=== PATIENT | male | born 1960 | race Caucasian/White ===

== ENCOUNTER 2017-11-29 10:42 | Emergency (ER) | payer OTHER ==
[~2017-11-29] VITALS: Ht 172.7 cm; Wt 88.5 kg
[~2017-11-29 10:42] MED LIST: (None)20 M1 PO; ALBU90OI INH; Cheratussin AC118 ML PO; Crutch1 EACH MISC; HYDACE5 PO; HYDGUAL120 PO; IBUP600 PO; Keflex500 MG PO; NAPR500 PO; Naprosyn500 MG PO; Norco 5-325 Ta1 EACH PO; OXYACE5T PO; PROM25 PO; RXPROM25 PO; SULTRIDS PO; TRAM50 PO; Ultram50 MG PO; Zithromax250 MG PO
[2017-11-29] MEDS ORDERED: Norco 5-325 Ta1 EACH PO (11:57)
[2018-10-20] MEDS ORDERED: MELO7.5 PO (08:33)
[2018-10-20] MEDS ORDERED: FOLI1 PO (08:33)
[2018-10-20] MEDS ORDERED: Norco 5-325 Ta1 EACH PO (10:07)
[2018-10-20] MEDS ORDERED: Bactrim Ds Tab1 EACH PO (11:12)
== END 2017-11-29 12:08 | disposition home or self-care (01) ==
LOC: ER 10:42
DX: S16.1XXA Strain of muscle, fascia and tendon at neck level, initial encounter (principal); S40.011A Contusion of right shoulder, initial encounter; F17.200 Nicotine dependence, unspecified, uncomplicated; Z88.5 Allergy status to narcotic agent; Z88.0 Allergy status to penicillin; Z79.2 Long term (current) use of antibiotics; W18.30XA Fall on same level, unspecified, initial encounter
CPT/HCPCS: 72040; 73030; 96372; 99283; J1885

== ENCOUNTER 2018-02-27 09:28 | Day surgery (SDC) | payer OTHER | END 2018-02-27 22:47 | disposition home or self-care (01) | LOC: US 09:28 | PROVIDERS: Radiology Diagnostic Radiology | PROC: 0FB03ZX Excision of Liver, Percutaneous Approach, Diagnostic (ICD-10-PCS; principal; 2018-02-27 11:00) | DX: B18.2 Chronic viral hepatitis C (principal); K74.0 Hepatic fibrosis | CPT/HCPCS: 47000; 76942; 88307; 88313 ==

== ENCOUNTER 2019-07-01 09:13 | Day surgery (SDC) | payer OTHER ==
[~2019-07-01] VITALS: Ht 172.7 cm; Wt 74.5 kg
[~2019-07-01 09:13] MED LIST changes: +Bactrim Ds Tab1 EACH PO; +FOLI1 PO; +MELO7.5 PO
[2019-07-01] MEDS ORDERED: Singulair5 MG (09:50)
[2019-07-01] MEDS ORDERED: Flonase 0.05% N16 GM (09:50)
[2019-07-01] MEDS ORDERED: PROAIR RESPICL90 MCG (09:51)
== END 2019-07-01 11:22 | disposition home or self-care (01) ==
LOC: ORSCSDS 09:13
PROVIDERS: Internal Medicine Gastroenterology
PROC: 0DBM8ZX Excision of Descending Colon, Via Natural or Artificial Opening Endoscopic, Diagnostic (ICD-10-PCS; principal; 2019-07-01 10:45)
PROC: 0DBN8ZX Excision of Sigmoid Colon, Via Natural or Artificial Opening Endoscopic, Diagnostic (ICD-10-PCS; principal; 2019-07-01 10:45)
PROC: 0DB98ZX Excision of Duodenum, Via Natural or Artificial Opening Endoscopic, Diagnostic (ICD-10-PCS; principal; 2019-07-01 10:45)
DX: D50.9 Iron deficiency anemia, unspecified (principal); D12.5 Benign neoplasm of sigmoid colon; D12.4 Benign neoplasm of descending colon; K31.7 Polyp of stomach and duodenum; K29.80 Duodenitis without bleeding; K64.8 Other hemorrhoids; B19.20 Unspecified viral hepatitis C without hepatic coma; F17.210 Nicotine dependence, cigarettes, uncomplicated; Z79.899 Other long term (current) drug therapy
CPT/HCPCS: 88305; J2704; J7120

== ENCOUNTER 2019-08-25 10:16 | Emergency (ER) | payer OTHER ==
[~2019-08-25] VITALS: Ht 172.7 cm; Wt 72.6 kg
[~2019-08-25 10:16] MED LIST changes: +Flonase 0.05% N16 GM; +PROAIR RESPICL90 MCG; +Singulair5 MG
[2019-08-25] MEDS ORDERED: SPIRIVA RESPIMAT4 GM IH (11:16)
[2019-08-25] MEDS ORDERED: NAPR550 PO (11:48)
[2019-08-25] MEDS ORDERED: Ultram50 MG PO (11:48)
== END 2019-08-25 11:54 | disposition home or self-care (01) ==
LOC: ER 10:16
DX: M70.61 Trochanteric bursitis, right hip (principal); Z88.5 Allergy status to narcotic agent; Z88.0 Allergy status to penicillin; Z79.899 Other long term (current) drug therapy; F17.200 Nicotine dependence, unspecified, uncomplicated
CPT/HCPCS: 20610; 73502; 96372-59; 99283-25; A9270-GY; J1885; J3301

== ENCOUNTER → 2021-08-31 | Outpatient (CLI) | payer OTHER ==
[~2021-08-31] MED LIST changes: +NAPR550 PO; +SPIRIVA RESPIMAT4 GM IH; +Voltaren100 GM TOP
[2021-08-31 15:35] LABS: BASOPHILS ABSOLUTE AUTO 0.04 K/mm3 (0.00-0.23); BASOPHILS PERCENT AUTO 1 % (0-2); EOSINOPHILS PERCENT AUTO 3 % (0-6); Hematocrit 28.3 % (37.0-53.0); Hemoglobin 9.7 g/dL (13.5-17.5); Mean Corpuscular HGB 42.4 pg (26.0-34.0); Mean Corpuscular HGB Conc 34.3 g/dL (31.5-36.5); Mean Corpuscular Volume 124 fL (80-100); Mean Platelet Volume 10.7 fL (9.1-12.4); NRBC ABSOLUTE 0.02 K/mm3 (0.00-0.02); NRBC Auto 0.6 /100 WBC (0.0-0.2); Platelet Count 218 K/mm3 (150-400); RDW Coefficient Variation 15.9 % (11.7-14.2); Red Blood Cell Count 2.29 M/mm3 (4.30-5.90)
[2021-08-31 15:37] LABS: IMMATURE GRAN ABSOLUTE AUTO 0.01 K/mm3 (0.00-0.10); IMMATURE GRAN PERCENT AUTO 0 % (0-1); LYMPHOCYTES ABSOLUTE AUTO 1.05 K/mm3 (0.84-5.20); LYMPHOCYTES PERCENT AUTO 30 % (21-46); MONOCYTES ABSOLUTE AUTO 0.31 K/mm3 (0.16-1.47); MONOCYTES PERCENT AUTO 9 % (4-13); NEUTROPHILS ABSOLUTE AUTO 1.99 K/mm3 (1.96-9.15); NEUTROPHILS PERCENT AUTO 57 % (41-73)
== END | disposition home or self-care (01) ==
LOC: LAB 12:31 → LAB SHORT 12:31
PROVIDERS: Internal Medicine Hematology & Oncology
DX: D75.89 Other specified diseases of blood and blood-forming organs (principal)
CPT/HCPCS: 36415; 85025

== ENCOUNTER 2021-11-24 06:23 | Day surgery (SDC) | payer OTHER ==
[2021-11-24] MEDS ORDERED: CYCL10 PO (06:41)
[2021-11-24] MEDS ORDERED: ALBU90OI INH (06:41)
[2021-11-24] MEDS ORDERED: LIDO5TO TOP (06:42)
[2021-11-24] MEDS ORDERED: Flonase 0.05% N16 GM (06:42)
[2021-11-24] MEDS ORDERED: XARELTO20 MG PO (06:43)
--- NOTE | 2021-11-24 08:06 | NUR ---
PT VERBALIZED UNDERSTANDING OF WRITTEN AND VERBAL D/C INST. IV REMOVED. SR 70BPM ON D/C.
== END 2021-11-24 23:44 | disposition home or self-care (01) ==
LOC: MHTC 06:23
DX: I48.91 Unspecified atrial fibrillation (principal)
CPT/HCPCS: 92960; 93005; 93010; J7030

== ENCOUNTER 2022-12-13 03:07 | Day surgery (SDC) | payer OTHER ==
[~2022-12-13 03:07] MED LIST changes: +CYCL10 PO; +LIDO5TO TOP; +XARELTO20 MG PO
[2022-12-13] MEDS ORDERED: LIDO700A20 TOP (13:36)
[2022-12-13] MEDS ORDERED: DILT120 PO (13:37)
== END 2022-12-13 15:24 | disposition home or self-care (01) ==
LOC: ATC 03:07
DX: D46.1 Refractory anemia with ring sideroblasts (principal); Z87.891 Personal history of nicotine dependence
CPT/HCPCS: 36415; 36430; 86850; 86900; 86901; 86920; J7040; P9016

== ENCOUNTER 2023-06-07 02:58 | Day surgery (SDC) | payer OTHER ==
[2023-06-07] VITALS (7 sets, daily range): BP systolic 114–152; BP diastolic 58–77
[~2023-06-07 02:58] MED LIST changes: +DILT120 PO; +LIDO700A20 TOP
== END 2023-06-07 17:48 | disposition home or self-care (01) ==
LOC: ATC 02:58
DX: D46.1 Refractory anemia with ring sideroblasts (principal)
CPT/HCPCS: 36415; 36430; 86850; 86900; 86901; 86923; J7050; P9016

== ENCOUNTER 2023-06-23 12:10 | Emergency (ER) | payer OTHER ==
[~2023-06-23] VITALS: Ht 172.7 cm; Wt 79.4 kg
[2023-06-23 12:38] VITALS: BP 147/78
[2023-06-23] MEDS ORDERED: Percocet 5-3251 EACH PO (15:04)
== END 2023-06-23 15:16 | disposition home or self-care (01) ==
LOC: ER 12:10
DX: S22.32XA Fracture of one rib, left side, initial encounter for closed fracture (principal); J90 Pleural effusion, not elsewhere classified; J45.909 Unspecified asthma, uncomplicated; I48.91 Unspecified atrial fibrillation; F17.210 Nicotine dependence, cigarettes, uncomplicated; Z88.5 Allergy status to narcotic agent; Z88.0 Allergy status to penicillin; Z79.01 Long term (current) use of anticoagulants; Z79.899 Other long term (current) drug therapy; W18.30XA Fall on same level, unspecified, initial encounter
CPT/HCPCS: 71101

== ENCOUNTER 2023-08-13 00:34 | Day surgery (SDC) | payer OTHER ==
[2023-08-13] VITALS (7 sets, daily range): BP systolic 119–144; BP diastolic 62–77
[~2023-08-13 00:34] MED LIST changes: +Percocet 5-3251 EACH PO
== END 2023-08-13 18:00 | disposition home or self-care (01) ==
LOC: ATC 00:34 → EDSTATUS 13:30 → ATC 18:00
DX: D46.1 Refractory anemia with ring sideroblasts (principal); E87.79 Other fluid overload; Z88.0 Allergy status to penicillin; Z88.5 Allergy status to narcotic agent; Z79.01 Long term (current) use of anticoagulants; Z87.891 Personal history of nicotine dependence; Z79.899 Other long term (current) drug therapy
CPT/HCPCS: 36415; 36430; 86850; 86900; 86901; 86923; J7050; P9016

== ENCOUNTER 2023-09-16 11:32 | Emergency (ER) | payer OTHER ==
[~2023-09-16] VITALS: Ht 172.7 cm; Wt 75.8 kg
[2023-09-16 12:12] VITALS: BP 158/65
[2023-09-16] MEDS ORDERED: CEPH500 PO (12:46)
== END 2023-09-16 13:07 | disposition home or self-care (01) ==
LOC: ER 11:32
DX: L02.415 Cutaneous abscess of right lower limb (principal); L03.115 Cellulitis of right lower limb; F17.200 Nicotine dependence, unspecified, uncomplicated; Z88.5 Allergy status to narcotic agent; Z88.0 Allergy status to penicillin; Z79.899 Other long term (current) drug therapy; Z79.01 Long term (current) use of anticoagulants
CPT/HCPCS: 99282

== ENCOUNTER 2023-10-08 14:25 | Day surgery (SDC) | payer OTHER ==
[~2023-10-08 14:25] MED LIST changes: +CEPH500 PO
[2023-10-08 14:45] VITALS: BP 120/59
[2023-10-08 15:04] VITALS: BP 113/73
[2023-10-08 16:22] VITALS: BP 110/75
[2023-10-08 16:42] VITALS: BP 121/80
[2023-10-08 17:55] VITALS: BP 109/71
== END 2023-10-08 18:00 | disposition home or self-care (01) ==
LOC: ATC 14:25
DX: D46.1 Refractory anemia with ring sideroblasts (principal); Z87.891 Personal history of nicotine dependence
CPT/HCPCS: 36430; 86850; 86900; 86901; 86923; J7050; P9016

== ENCOUNTER 2023-12-03 02:28 | Day surgery (SDC) | payer OTHER ==
[2023-12-03 13:55] VITALS: BP 125/80
[2023-12-03 14:11] VITALS: BP 111/63
[2023-12-03 15:10] VITALS: BP 113/65
[2023-12-03 15:41] VITALS: BP 122/67
[2023-12-03 15:57] VITALS: BP 121/79
[2023-12-03 16:59] VITALS: BP 128/72
--- NOTE | 2023-12-03 17:19 | NUR ---
END TIME: 9340
== END 2023-12-03 17:10 ==
LOC: ATC 02:28
DX: D46.1 Refractory anemia with ring sideroblasts (principal); Z87.891 Personal history of nicotine dependence
CPT/HCPCS: 36415; 36430; 86850; 86900; 86901; 86923; J7050; P9016

== ENCOUNTER 2023-12-10 11:08 | Emergency (ER) | payer OTHER ==
[~2023-12-10] VITALS: Ht 172.7 cm; Wt 79.4 kg
[2023-12-10 11:50] LABS: BASOPHILS ABSOLUTE AUTO 0.02 K/mm3 (0.00-0.23); BASOPHILS PERCENT AUTO 1 % (0-2); EOSINOPHILS ABSOLUTE AUTO 0.17 K/mm3 (0.00-0.68); EOSINOPHILS PERCENT AUTO 5 % (0-6); Hematocrit 20.6 % (37.0-53.0); Hemoglobin 6.7 g/dL (13.5-17.5); IMMATURE GRAN ABSOLUTE AUTO 0.04 K/mm3 (0.00-0.10); IMMATURE GRAN PERCENT AUTO 1 % (0-1); LYMPHOCYTES ABSOLUTE AUTO 0.68 K/mm3 (0.84-5.20); LYMPHOCYTES PERCENT AUTO 19 % (21-46); MONOCYTES PERCENT AUTO 11 % (4-13); Mean Corpuscular HGB 37.6 pg (26.0-34.0); Mean Corpuscular HGB Conc 32.5 g/dL (31.5-36.5); Mean Corpuscular Volume 116 fL (80-100); Mean Platelet Volume 11.1 fL (9.1-12.4); NEUTROPHILS ABSOLUTE AUTO 2.23 K/mm3 (1.96-9.15); NEUTROPHILS PERCENT AUTO 63 % (41-73); NRBC ABSOLUTE 0.12 K/mm3 (0.00-0.02); NRBC Auto 3.4 /100 WBC (0.0-0.2); Platelet Count 278 K/mm3 (150-400); RDW Coefficient Variation 29.7 % (11.7-14.2); RDW Standard Deviation 117.3 fL (35.1-46.3); Red Blood Cell Count 1.78 M/mm3 (4.30-5.90); White Blood Cell Count 3.54 K/mm3 (4.00-11.30)
[2023-12-10 12:04] LABS: International Normalized Ratio 1.3; Prothrombin Time Results 13.4 Sec (9.7-11.5)
[2023-12-10 12:09] LABS: Albumin/Globulin Ratio 0.7 (0.8-1.8); Bilirubin, Total 1.5 mg/dL (0.1-1.0); Bun/Creatinine Ratio 13.2 (12.0-20.0); Calcium, Blood 8.4 mg/dL (8.5-10.1); Creatinine, Blood 0.53 mg/dL (0.60-1.20); Globulin, Blood 4.1 g/dL (2.2-4.0); Potassium, Blood 3.5 mmol/L (3.5-5.5); Total Protein, Blood 7.1 g/dL (6.4-8.2)
[2023-12-10 15:30] VITALS: BP 122/83
== END 2023-12-10 15:56 | disposition home or self-care (01) ==
LOC: ER 11:08
PROVIDERS: Physician Assistant
DX: D64.9 Anemia, unspecified (principal); F17.210 Nicotine dependence, cigarettes, uncomplicated; Z88.0 Allergy status to penicillin; Z88.5 Allergy status to narcotic agent; Z79.899 Other long term (current) drug therapy; Z79.01 Long term (current) use of anticoagulants
CPT/HCPCS: 36430; 80053; 85025; 85610; 86850; 86900; 86901; 86923; 93005; 93010; 99284-25; J7030; P9016

== ENCOUNTER 2024-05-15 02:17 | Day surgery (SDC) | payer OTHER ==
[2024-05-15] VITALS (7 sets, daily range): BP systolic 103–134; BP diastolic 51–78
[~2024-05-15 02:17] MED LIST changes: +FUROSEMIDE40 MG PO; +KLOR-CON 1010 ME9 PO; +NEURONTIN300 MG PO; +Nicoderm Cq1 EACH TOP; +PANTOPRAZOLE SO40 M2 PO; +SPIRIVA RESPIMAT4 G3 INH; +Ventolin5 MG/1 ML INH
[2024-05-15] MEDS ORDERED: NS 250 ML IV SCH (11:40)
== END 2024-05-15 17:12 | disposition home or self-care (01) ==
LOC: ATC 02:17
DX: D46.1 Refractory anemia with ring sideroblasts (principal); Z88.0 Allergy status to penicillin; Z88.5 Allergy status to narcotic agent
CPT/HCPCS: 36415; 36430; 86850; 86900; 86901; 86923; J7050; P9016

== ENCOUNTER → 2024-06-23 | Outpatient (CLI) | payer OTHER ==
[2024-06-23 18:24] LABS: Percent Saturation 97.6 % (20.0-50.0)
== END ==
LOC: LAB 15:31 → LAB SHORT 15:31
PROVIDERS: Internal Medicine Hematology & Oncology
DX: D46.1 Refractory anemia with ring sideroblasts (principal)
CPT/HCPCS: 82728; 83540; 83550

== ENCOUNTER 2024-08-21 03:02 | Day surgery (SDC) | payer OTHER ==
[2024-08-19 13:57] LABS: Mean Corpuscular HGB 34.4 pg (26.0-34.0); Mean Corpuscular HGB Conc 32.9 g/dL (31.5-36.5); Mean Corpuscular Volume 105 fL (80-100); Mean Platelet Volume 10.4 fL (9.1-12.4); NRBC ABSOLUTE 0.03 K/mm3 (0.00-0.02); NRBC Auto 1.6 /100 WBC (0.0-0.2); Platelet Count 181 K/mm3 (150-400); RDW Coefficient Variation 30.5 % (11.7-14.2); RDW Standard Deviation 109.5 fL (35.1-46.3); Red Blood Cell Count 1.54 M/mm3 (4.30-5.90); White Blood Cell Count 1.83 K/mm3 (4.00-11.30)
[2024-08-19 14:29] LABS: Hematocrit 16.1 % (37.0-53.0); Hemoglobin 5.3 g/dL (13.5-17.5)
[2024-08-19 15:01] LABS: BAND PERCENT MAN 4 % (0-8); BASOPHILS PERCENT MAN 0 % (0-2); EOSINOPHILS ABSOLUTE MAN 0.03 K/mm3 (0.00-0.68); EOSINOPHILS PERCENT MAN 2 % (0-6); LYMPHOCYTES ABSOLUTE MAN 0.25 K/mm3 (0.84-5.20); LYMPHOCYTES PERCENT MAN 14 % (21-46); MONOCYTES ABSOLUTE MAN 0.07 K/mm3 (0.16-1.47); MONOCYTES PERCENT MAN 4 % (4-13); NEUTROPHILS ABSOLUTE MAN 1.46 K/mm3 (1.96-9.15); SEG NEUTROPHILS PERCENT MAN 76 % (41-73); TOTAL CELLS COUNTED 50
[2024-08-21] MEDS ORDERED: NS 250 ML IV SCH (07:05)
[2024-08-21 13:32] VITALS: BP 106/50
[2024-08-21 13:51] VITALS: BP 101/62
[2024-08-21 15:08] VITALS: BP 114/66
[2024-08-21 15:30] VITALS: BP 108/68
[2024-08-21 16:31] VITALS: BP 110/65
[2024-08-21 17:01] VITALS: BP 110/65
== END 2024-08-21 17:03 | disposition home or self-care (01) ==
LOC: ATC 03:02 → EDSTATUS 13:30 → ATC 13:30
PROVIDERS: Internal Medicine Hematology & Oncology
DX: D46.1 Refractory anemia with ring sideroblasts (principal)
CPT/HCPCS: 36415; 36430; 85025; 86850; 86900; 86901; 86923; J7050; P9016

== ENCOUNTER → 2024-08-26 | Outpatient (CLI) | payer OTHER ==
[2024-08-26 19:01] LABS: BASOPHILS ABSOLUTE AUTO 0.03 K/mm3 (0.00-0.23); BASOPHILS PERCENT AUTO 1 % (0-2); EOSINOPHILS ABSOLUTE AUTO 0.05 K/mm3 (0.00-0.68); EOSINOPHILS PERCENT AUTO 2 % (0-6); Hematocrit 18.5 % (37.0-53.0); Hemoglobin 6.2 g/dL (13.5-17.5); IMMATURE GRAN ABSOLUTE AUTO 0.01 K/mm3 (0.00-0.10); IMMATURE GRAN PERCENT AUTO 1 % (0-1); LYMPHOCYTES ABSOLUTE AUTO 0.34 K/mm3 (0.84-5.20); LYMPHOCYTES PERCENT AUTO 16 % (21-46); MONOCYTES ABSOLUTE AUTO 0.21 K/mm3 (0.16-1.47); MONOCYTES PERCENT AUTO 10 % (4-13); Mean Corpuscular HGB 34.8 pg (26.0-34.0); Mean Corpuscular HGB Conc 33.5 g/dL (31.5-36.5); Mean Corpuscular Volume 104 fL (80-100); Mean Platelet Volume 10.6 fL (9.1-12.4); NEUTROPHILS ABSOLUTE AUTO 1.44 K/mm3 (1.96-9.15); NEUTROPHILS PERCENT AUTO 69 % (41-73); Platelet Count 185 K/mm3 (150-400); RDW Coefficient Variation 27.3 % (11.7-14.2); RDW Standard Deviation 99.8 fL (35.1-46.3); Red Blood Cell Count 1.78 M/mm3 (4.30-5.90); White Blood Cell Count 2.08 K/mm3 (4.00-11.30)
[2024-08-26 19:38] LABS: Percent Saturation 102.1 % (20.0-50.0)
== END ==
LOC: LAB 12:30 → LAB SHORT 12:30
PROVIDERS: Internal Medicine Hematology & Oncology
DX: D75.89 Other specified diseases of blood and blood-forming organs (principal); D50.9 Iron deficiency anemia, unspecified
CPT/HCPCS: 82728; 83540; 83550; 85025

== ENCOUNTER 2024-09-04 00:04 | Day surgery (SDC) | payer OTHER ==
[2024-09-04] MEDS ORDERED: NS 250 ML IV SCH (07:10)
[2024-09-04 13:16] VITALS: BP 108/53
[2024-09-04 13:34] VITALS: BP 108/55
[2024-09-04 14:36] VITALS: BP 115/60
[2024-09-04 14:57] VITALS: BP 115/60
[2024-09-04 15:17] VITALS: BP 107/80
[2024-09-04 16:48] VITALS: BP 106/72
== END 2024-09-04 16:50 | disposition home or self-care (01) ==
LOC: ATC 00:04
DX: D46.1 Refractory anemia with ring sideroblasts (principal); D50.9 Iron deficiency anemia, unspecified; D75.89 Other specified diseases of blood and blood-forming organs; Z79.01 Long term (current) use of anticoagulants; Z79.899 Other long term (current) drug therapy; Z87.891 Personal history of nicotine dependence; Z88.0 Allergy status to penicillin; Z88.5 Allergy status to narcotic agent
CPT/HCPCS: 36415; 82728; 83540; 83550; 85025; 86850; 86900; 86901; 86923; J7050; P9016

== ENCOUNTER → 2024-09-16 | Outpatient (CLI) | payer OTHER ==
[2024-09-16 14:23] LABS: BASOPHILS ABSOLUTE AUTO 0.03 K/mm3 (0.00-0.23); BASOPHILS PERCENT AUTO 2 % (0-2); EOSINOPHILS ABSOLUTE AUTO 0.09 K/mm3 (0.00-0.68); EOSINOPHILS PERCENT AUTO 5 % (0-6); Hemoglobin 6.4 g/dL (13.5-17.5); IMMATURE GRAN ABSOLUTE AUTO 0.01 K/mm3 (0.00-0.10); IMMATURE GRAN PERCENT AUTO 1 % (0-1); LYMPHOCYTES ABSOLUTE AUTO 0.45 K/mm3 (0.84-5.20); LYMPHOCYTES PERCENT AUTO 23 % (21-46); MONOCYTES ABSOLUTE AUTO 0.22 K/mm3 (0.16-1.47); MONOCYTES PERCENT AUTO 11 % (4-13); Mean Corpuscular HGB 34.8 pg (26.0-34.0); Mean Corpuscular HGB Conc 33.7 g/dL (31.5-36.5); Mean Corpuscular Volume 103 fL (80-100); Mean Platelet Volume 10.5 fL (9.1-12.4); NEUTROPHILS PERCENT AUTO 60 % (41-73); NRBC ABSOLUTE 0.03 K/mm3 (0.00-0.02); NRBC Auto 1.5 /100 WBC (0.0-0.2); Platelet Count 187 K/mm3 (150-400); RDW Coefficient Variation 26.1 % (11.7-14.2); RDW Standard Deviation 93.1 fL (35.1-46.3); Red Blood Cell Count 1.84 M/mm3 (4.30-5.90)
== END ==
LOC: LAB 11:40 → LAB SHORT 11:40
PROVIDERS: Internal Medicine Hematology & Oncology
DX: D46.1 Refractory anemia with ring sideroblasts (principal)
CPT/HCPCS: 85025

== ENCOUNTER 2024-09-21 03:04 | Day surgery (SDC) | payer OTHER ==
[2024-09-21 13:21] VITALS: BP 111/59
[2024-09-21] MEDS ORDERED: NS 250 ML IV SCH (13:30)
[2024-09-21 13:41] VITALS: BP 108/62
[2024-09-21 14:44] VITALS: BP 125/69
[2024-09-21 15:16] VITALS: BP 114/70
[2024-09-21 15:40] VITALS: BP 114/68
[2024-09-21 16:41] VITALS: BP 120/68
== END 2024-09-21 23:00 | disposition home or self-care (01) ==
LOC: ATC 03:04
DX: D46.1 Refractory anemia with ring sideroblasts (principal); Z87.891 Personal history of nicotine dependence; Z88.0 Allergy status to penicillin; Z88.5 Allergy status to narcotic agent
CPT/HCPCS: 36415; 86850; 86900; 86901; 86923; J7050; P9016

== ENCOUNTER 2024-10-23 02:28 | Day surgery (SDC) | payer OTHER ==
[2024-10-23] VITALS (7 sets, daily range): BP systolic 97–117; BP diastolic 58–78
[2024-10-23] MEDS ORDERED: NS 250 ML IV SCH (07:05)
[2024-10-23] MEDS ORDERED: ANTIBIOTIC (14:16)
[2024-10-23] MEDS ORDERED: GUAI600T33 PO (14:16)
[2024-10-23] MEDS ORDERED: SOAANZ40 M1 PO (14:16)
== END 2024-10-23 18:02 | disposition home or self-care (01) ==
LOC: ATC 02:28
DX: D46.1 Refractory anemia with ring sideroblasts (principal); Z87.891 Personal history of nicotine dependence; Z79.899 Other long term (current) drug therapy; Z88.0 Allergy status to penicillin; Z88.5 Allergy status to narcotic agent
CPT/HCPCS: 36415; 36430; 86850; 86900; 86901; 86923; J7050; P9016

== ENCOUNTER → 2024-10-28 | Outpatient (CLI) | payer OTHER ==
[~2024-10-28] MED LIST changes: +ANTIBIOTIC; +GUAI600T33 PO; +SOAANZ40 M1 PO
[2024-10-28 15:47] LABS: BASOPHILS ABSOLUTE AUTO 0.02 K/mm3 (0.00-0.23); BASOPHILS PERCENT AUTO 1 % (0-2); EOSINOPHILS ABSOLUTE AUTO 0.07 K/mm3 (0.00-0.68); EOSINOPHILS PERCENT AUTO 3 % (0-6); Hematocrit 23.8 % (37.0-53.0); Hemoglobin 7.8 g/dL (13.5-17.5); IMMATURE GRAN ABSOLUTE AUTO 0.01 K/mm3 (0.00-0.10); IMMATURE GRAN PERCENT AUTO 1 % (0-1); LYMPHOCYTES ABSOLUTE AUTO 0.47 K/mm3 (0.84-5.20); LYMPHOCYTES PERCENT AUTO 22 % (21-46); MONOCYTES ABSOLUTE AUTO 0.24 K/mm3 (0.16-1.47); MONOCYTES PERCENT AUTO 11 % (4-13); Mean Corpuscular HGB 34.7 pg (26.0-34.0); Mean Corpuscular HGB Conc 32.8 g/dL (31.5-36.5); Mean Corpuscular Volume 106 fL (80-100); Mean Platelet Volume 10.9 fL (9.1-12.4); NEUTROPHILS ABSOLUTE AUTO 1.37 K/mm3 (1.96-9.15); NEUTROPHILS PERCENT AUTO 63 % (41-73); NRBC ABSOLUTE 0.02 K/mm3 (0.00-0.02); NRBC Auto 0.9 /100 WBC (0.0-0.2); Platelet Count 150 K/mm3 (150-400); RDW Coefficient Variation 27.9 % (11.7-14.2); RDW Standard Deviation 98.7 fL (35.1-46.3); Red Blood Cell Count 2.25 M/mm3 (4.30-5.90); White Blood Cell Count 2.18 K/mm3 (4.00-11.30)
== END ==
LOC: LAB SHORT 12:00 → LAB 12:00
PROVIDERS: Internal Medicine Hematology & Oncology
DX: D50.9 Iron deficiency anemia, unspecified (principal)
CPT/HCPCS: 85025

== ENCOUNTER → 2024-12-09 | Outpatient (CLI) | payer OTHER ==
[2024-12-09 14:31] LABS: Hematocrit 18.8 % (37.0-53.0); Hemoglobin 6.4 g/dL (13.5-17.5); Mean Corpuscular HGB 35.8 pg (26.0-34.0); Mean Corpuscular Volume 105 fL (80-100); Mean Platelet Volume 11.1 fL (9.1-12.4); NRBC ABSOLUTE 0.03 K/mm3 (0.00-0.02); NRBC Auto 1.7 /100 WBC (0.0-0.2); Platelet Count 176 K/mm3 (150-400); RDW Coefficient Variation 28.4 % (11.7-14.2); RDW Standard Deviation 101.8 fL (35.1-46.3); Red Blood Cell Count 1.79 M/mm3 (4.30-5.90); White Blood Cell Count 1.77 K/mm3 (4.00-11.30)
[2024-12-09 15:19] LABS: BAND PERCENT MAN 4 % (0-8); BASOPHILS ABSOLUTE MAN 0.07 K/mm3 (0.00-0.23); BASOPHILS PERCENT MAN 4 % (0-2); EOSINOPHILS PERCENT MAN 6 % (0-6); LYMPHOCYTES ABSOLUTE MAN 0.69 K/mm3 (0.84-5.20); LYMPHOCYTES PERCENT MAN 39 % (21-46); MONOCYTES ABSOLUTE MAN 0.17 K/mm3 (0.16-1.47); MONOCYTES PERCENT MAN 10 % (4-13); NEUTROPHILS ABSOLUTE MAN 0.72 K/mm3 (1.96-9.15); SEG NEUTROPHILS PERCENT MAN 37 % (41-73); TOTAL CELLS COUNTED 100
== END | disposition home or self-care (01) ==
LOC: LAB 13:23 → LAB SHORT 13:23
PROVIDERS: Internal Medicine Hematology & Oncology
DX: D46.1 Refractory anemia with ring sideroblasts (principal)
CPT/HCPCS: 85025

== ENCOUNTER → 2024-12-24 | Outpatient (CLI) | payer OTHER ==
[2024-12-24 22:43] LABS: Alanine Aminotransfer (ALT/SGP 78 U/L (12-78); Albumin, Blood 3.8 g/dL (3.4-5.0); Albumin/Globulin Ratio 0.9 (0.8-1.8); Alk Phos 88 U/L (50-136); Anion Gap 8 mmol/L (3-11); Aspartate Aminotrans (AST/SGOT 64 U/L (12-37); Bilirubin, Total 1.4 mg/dL (0.1-1.0); Blood Urea Nitrogen 20 mg/dL (8-24); Bun/Creatinine Ratio 33.9 (12.0-20.0); CHOL/HDL RATIO 1.8; CO2, Blood 28 mmol/L (21-32); Calcium, Blood 8.7 mg/dL (8.5-10.1); Chloride, Blood 103 mmol/L (98-108); Cholesterol 90 mg/dL (50-200); Creatinine, Blood 0.59 mg/dL (0.60-1.20); Globulin, Blood 4.4 g/dL (2.2-4.0); Glomerular Filtration Rate 109 (60-); Glucose, Blood 113 mg/dL (70-99); Glutamyl Transpeptidase, GGT 76 U/L (15-85); HDL Cholesterol 50 mg/dL (>39); LDL/HDL RATIO 0.7; Low Density Lipoprotein Chol 33 mg/dL (0-110); Prostate Specific Antigen 0.079 ng/mL (0.000-4.000); Sodium, Blood 135 mmol/L (136-145); Total Protein, Blood 8.2 g/dL (6.4-8.2); Triglycerides 36 mg/dL (30-160); Very Low Density Lipoprot Chol 7 mg/dL (6-32)
[2024-12-27 17:08] LABS: HIV 1,2 COMBO ANTIGEN/ANTIBODY Negative (Negative)
== END ==
LOC: LAB 13:55 → LAB SHORT 13:55
PROVIDERS: Family Medicine
DX: F10.10 Alcohol abuse, uncomplicated (principal); I50.30 Unspecified diastolic (congestive) heart failure; R74.01 Elevation of levels of liver transaminase levels; Z11.4 Encounter for screening for human immunodeficiency virus [HIV]; Z12.5 Encounter for screening for malignant neoplasm of prostate
CPT/HCPCS: 80053; 80061; 82607; 82746; 82977; 87389; G0103

== ENCOUNTER 2025-01-07 00:44 | Day surgery (SDC) | payer OTHER ==
[2025-01-05 13:35] LABS: BASOPHILS ABSOLUTE AUTO 0.03 K/mm3 (0.00-0.23); BASOPHILS PERCENT AUTO 2 % (0-2); EOSINOPHILS ABSOLUTE AUTO 0.11 K/mm3 (0.00-0.68); EOSINOPHILS PERCENT AUTO 6 % (0-6); Hematocrit 19.2 % (37.0-53.0); Hemoglobin 6.4 g/dL (13.5-17.5); IMMATURE GRAN ABSOLUTE AUTO 0.01 K/mm3 (0.00-0.10); IMMATURE GRAN PERCENT AUTO 1 % (0-1); LYMPHOCYTES PERCENT AUTO 25 % (21-46); MONOCYTES ABSOLUTE AUTO 0.29 K/mm3 (0.16-1.47); MONOCYTES PERCENT AUTO 15 % (4-13); Mean Corpuscular HGB 37.4 pg (26.0-34.0); Mean Corpuscular HGB Conc 33.3 g/dL (31.5-36.5); Mean Corpuscular Volume 112 fL (80-100); Mean Platelet Volume 11.1 fL (9.1-12.4); NEUTROPHILS ABSOLUTE AUTO 1.06 K/mm3 (1.96-9.15); NEUTROPHILS PERCENT AUTO 53 % (41-73); NRBC ABSOLUTE 0.03 K/mm3 (0.00-0.02); NRBC Auto 1.5 /100 WBC (0.0-0.2); Platelet Count 182 K/mm3 (150-400); RDW Coefficient Variation 30.5 % (11.7-14.2); Red Blood Cell Count 1.71 M/mm3 (4.30-5.90)
[2025-01-07] VITALS (7 sets, daily range): BP systolic 109–124; BP diastolic 51–77
[2025-01-07] MEDS ORDERED: NS 250 ML IV SCH (07:05)
== END 2025-01-07 17:22 | disposition home or self-care (01) ==
LOC: ATC 00:44
PROVIDERS: Internal Medicine Hematology & Oncology
DX: D46.1 Refractory anemia with ring sideroblasts (principal); Z79.899 Other long term (current) drug therapy; Z88.0 Allergy status to penicillin; Z88.5 Allergy status to narcotic agent
CPT/HCPCS: 36415; 36430; 85025; 86850; 86900; 86901; 86923; J7050; P9016

== ENCOUNTER 2025-03-22 17:47 | Emergency (ER) | payer OTHER ==
[~2025-03-22] VITALS: Ht 172.7 cm; Wt 72.6 kg
[2025-03-22] MEDS ORDERED: ZANAFLEX413 PO (18:14)
[2025-03-22 19:15] VITALS: BP 128/68
== END 2025-03-22 19:18 | disposition home or self-care (01) ==
LOC: ER 17:47
DX: L76.21 Postprocedural hemorrhage of skin and subcutaneous tissue following a dermatologic procedure (principal); J44.9 Chronic obstructive pulmonary disease, unspecified; Z87.891 Personal history of nicotine dependence; Z88.5 Allergy status to narcotic agent; Z88.0 Allergy status to penicillin
CPT/HCPCS: 99284

== ENCOUNTER 2025-03-22 22:35 | Observation (INO) | payer OTHER ==
[~2025-03-22] VITALS: Ht 172.7 cm; Wt 68.4 kg
[~2025-03-22 22:35] MED LIST changes: +ZANAFLEX413 PO
[2025-03-22] MEDS ORDERED: Tranexamic Acid 100 ML IV ONE (23:10)
[2025-03-22 23:29] LABS: BASOPHILS ABSOLUTE AUTO 0.02 K/mm3 (0.00-0.23); BASOPHILS PERCENT AUTO 1 % (0-2); EOSINOPHILS ABSOLUTE AUTO 0.13 K/mm3 (0.00-0.68); EOSINOPHILS PERCENT AUTO 4 % (0-6); Hematocrit 20.2 % (37.0-53.0); Hemoglobin 6.9 g/dL (13.5-17.5); IMMATURE GRAN ABSOLUTE AUTO 0.02 K/mm3 (0.00-0.10); IMMATURE GRAN PERCENT AUTO 1 % (0-1); LYMPHOCYTES ABSOLUTE AUTO 0.67 K/mm3 (0.84-5.20); LYMPHOCYTES PERCENT AUTO 19 % (21-46); MONOCYTES ABSOLUTE AUTO 0.38 K/mm3 (0.16-1.47); MONOCYTES PERCENT AUTO 11 % (4-13); Mean Corpuscular HGB 34.7 pg (26.0-34.0); Mean Corpuscular HGB Conc 34.2 g/dL (31.5-36.5); Mean Corpuscular Volume 102 fL (80-100); Mean Platelet Volume 10.7 fL (9.1-12.4); NEUTROPHILS ABSOLUTE AUTO 2.32 K/mm3 (1.96-9.15); NEUTROPHILS PERCENT AUTO 66 % (41-73); Platelet Count 189 K/mm3 (150-400); RDW Coefficient Variation 28.5 % (11.7-14.2); RDW Standard Deviation 103.7 fL (35.1-46.3); Red Blood Cell Count 1.99 M/mm3 (4.30-5.90); White Blood Cell Count 3.54 K/mm3 (4.00-11.30)
[2025-03-23] VITALS (8 sets, daily range): BP systolic 97–126; BP diastolic 57–74
[2025-03-23] MEDS ORDERED: Ondansetron HCl 2 MG / ML 2ML Vial IV PRN (00:50)
[2025-03-23 01:07] LABS: Hematocrit 18.9 % (37.0-53.0); Hemoglobin 6.4 g/dL (13.5-17.5)
[2025-03-23 01:23] LABS: Bun/Creatinine Ratio 37.9 (12.0-20.0); Calcium, Blood 8.5 mg/dL (8.5-10.1); Creatinine, Blood 0.5 mg/dL (0.60-1.20); Potassium, Blood 3.6 mmol/L (3.5-5.5)
[2025-03-23 01:24] LABS: International Normalized Ratio 1.12; Prothrombin Time Results 11.9 Sec (9.7-11.5)
[2025-03-23] MEDS ORDERED: NS 250 ML IV PRN (02:45)
[2025-03-23] MEDS ORDERED: FentaNYL Citrate 50 MCG/ML 2 ML Injection IV PRN (04:30)
--- NOTE | 2025-03-23 05:49 | NUR ---
BOTTLE FEEDER SUMMARY PT IS A NEW ADMIT TONIGHT FROM THE ED. ADMITTED FOR POST OP ANEMIA. PT HAD A CYST REMOVED EARLIER TODAY FROM HIS R THIGH AND EXPERIENCED LARGE AMOUNTS OF BLEEDING POST OP. PT ARRIVES TO UNIT AAOX4 AND ABLE TO TRANSFER HIMSELF FROM [facility] TO BED. DRESSING TO INCISION C/D/I WITH BULKY GAUZE AND TIGHTLY WRAPPED SAMEERA WRAP. PLACED ON TELEMETRY AND HAS BEEN AFLUTTER IN THE 80'S SINCE ARRIVAL. SHORTLY AFTER ARRIVING PT STARTED ON 1 UNIT OF PRBC. PT HAS CHRONIC ANEMIA DUE AND STATES HE RECEIVES BLOOD TRANSFUSIONS AT LEAST ONCE PER MONTH. BLOOD TRANSFUSED WITH NO PROBLEM, VITALS STABLE THROUGHOUT AND LUNG SOUNDS CLEAR. PT REPORTING 8/10 LEG PAIN TO RLE. SPOKE WITH DR SEGUNDO ABOUT PAIN CONTROL AND RECEIVED ORDER FOR IV FENTANYL. PT REPORTS NOT HAVING FENTANYL BEFORE SO GIVEN SMALLER 25 MCG DOSE TO START. TRANSFUSION FINISHED, PT NOW RESTING IN BED. DENIES NEEDS AT THIS TIME.
[2025-03-23] MEDS ORDERED: TiZANidine HCl 4 MG Tab PO PRN (06:25)
[2025-03-23] MEDS ORDERED: Tiotropium Bromide 2.5 MCG/ACT MIST INHAL (10 ACT/4 GM) INH SCH (06:25)
[2025-03-23] MEDS ORDERED: Albuterol HFA200 ACT/6.7 GM INH INH PRN (06:40)
[2025-03-23 07:30] LABS: Hematocrit 20.8 % (37.0-53.0); Hemoglobin 6.9 g/dL (13.5-17.5)
[2025-03-23 07:46] LABS: Albumin, Blood 3.3 g/dL (3.4-5.0); Albumin/Globulin Ratio 0.9 (0.8-1.8); Bilirubin, Total 2.1 mg/dL (0.1-1.0); Bun/Creatinine Ratio 30.7 (12.0-20.0); Calcium, Blood 8.3 mg/dL (8.5-10.1); Creatinine, Blood 0.42 mg/dL (0.60-1.20); Globulin, Blood 3.7 g/dL (2.2-4.0); Potassium, Blood 3.7 mmol/L (3.5-5.5)
[2025-03-23] MEDS ORDERED: Polyethylene Glycol 3350 17 gm PO PRN (07:50)
[2025-03-23] MEDS ORDERED: HYDROcodone 5-APAP 325 TAB PO PRN (07:50)
[2025-03-23] MEDS ORDERED: dilTIAZem HCL 120 MG CAP.CD PO SCH (09:00)
[2025-03-23] MEDS ORDERED: Potassium Chloride 10 Meq Tablet SA PO SCH (09:00)
[2025-03-23] MEDS ORDERED: Lidocaine 4% 1 Patch TOP SCH (09:00)
[2025-03-23] MEDS ORDERED: Torsemide 20 MG TAB PO SCH (09:00)
[2025-03-23 13:56] LABS: BASOPHILS ABSOLUTE AUTO 0.05 K/mm3 (0.00-0.23); BASOPHILS PERCENT AUTO 2 % (0-2); EOSINOPHILS ABSOLUTE AUTO 0.15 K/mm3 (0.00-0.68); EOSINOPHILS PERCENT AUTO 5 % (0-6); Hematocrit 21.5 % (37.0-53.0); Hemoglobin 7.1 g/dL (13.5-17.5); IMMATURE GRAN ABSOLUTE AUTO 0.01 K/mm3 (0.00-0.10); IMMATURE GRAN PERCENT AUTO 0 % (0-1); LYMPHOCYTES ABSOLUTE AUTO 0.59 K/mm3 (0.84-5.20); LYMPHOCYTES PERCENT AUTO 19 % (21-46); MONOCYTES ABSOLUTE AUTO 0.38 K/mm3 (0.16-1.47); MONOCYTES PERCENT AUTO 12 % (4-13); Mean Corpuscular HGB 32.7 pg (26.0-34.0); Mean Corpuscular Volume 99 fL (80-100); Mean Platelet Volume 11.5 fL (9.1-12.4); NEUTROPHILS ABSOLUTE AUTO 1.97 K/mm3 (1.96-9.15); NEUTROPHILS PERCENT AUTO 63 % (41-73); NRBC ABSOLUTE 0.02 K/mm3 (0.00-0.02); NRBC Auto 0.6 /100 WBC (0.0-0.2); Platelet Count 193 K/mm3 (150-400); RDW Coefficient Variation 28.6 % (11.7-14.2); RDW Standard Deviation 97.9 fL (35.1-46.3); Red Blood Cell Count 2.17 M/mm3 (4.30-5.90); White Blood Cell Count 3.15 K/mm3 (4.00-11.30)
--- NOTE | 2025-03-23 16:15 | NUR ---
DISCHARGE SUMMARY PT IS TOLERATING FOOD AND FLUIDS WELL. INCISION SITE WNL, NO DRAINAGE. PAIN CONTROLLED APPROPRIATELY. GAUZE AND SAMEERA WRAP GIVEN FOR DRESSING CHANGE AT HOME. PT ALREADY UPDATED DERMATOLOGY. DISCHARGE INSTRUCTIONS REVIEWED AND GIVEN. ESCORTED OUT VIA WC.
[2025-03-23] MEDS ORDERED: Docusate Sodium/Senna 1 Tab PO SCH (21:00)
[2025-03-24] MEDS ORDERED: Pantoprazole Sodium 40 MG Tab PO SCH (06:00)
== END 2025-03-23 16:19 | disposition home or self-care (01) ==
LOC: ER 22:35 → SURS 22:36
PROVIDERS: Emergency Medicine; ADMIT Internal Medicine
DX: D62 Acute posthemorrhagic anemia (principal); C94.6 Myelodysplastic disease, not elsewhere classified; I48.0 Paroxysmal atrial fibrillation; I11.0 Hypertensive heart disease with heart failure; I50.30 Unspecified diastolic (congestive) heart failure; J44.9 Chronic obstructive pulmonary disease, unspecified; K21.9 Gastro-esophageal reflux disease without esophagitis; Z88.0 Allergy status to penicillin; Z88.5 Allergy status to narcotic agent; Z79.899 Other long term (current) drug therapy
CPT/HCPCS: 36415; 36430; 80048; 80053; 85014; 85018; 85025; 85610; 85730; 86850; 86900; 86901; 86923; 96374; 96375; 96376; 99284-25; A9270; G0378; J3010; J7050; P9016

== ENCOUNTER 2025-06-09 06:13 | Day surgery (SDC) | payer OTHER ==
[~2025-06-09] VITALS: Ht 172.7 cm; Wt 70.4 kg
[2025-06-09] VITALS (9 sets, daily range): BP systolic 101–119; BP diastolic 53–74
[~2025-06-09 06:13] MED LIST changes: +SYMBICORT 80-10.2 GM INH
[2025-06-09] MEDS ORDERED: CeFAZolin Sodium 2,000 MG in NS 100 ML IV SCH (06:35)
[2025-06-09] MEDS ORDERED: Bupivacaine 0.5% W/EPI 1:200000 SDV 30 ML Vial ONE ×2 (07:02→07:17)
[2025-06-09] MEDS ORDERED: CeFAZolin Sodium 2,000 MG VIAL ONE (07:06)
[2025-06-09 07:22] LABS: Hematocrit 19.6 % (37.0-53.0); Hemoglobin 6.5 g/dL (13.5-17.5); Mean Corpuscular HGB Conc 33.2 g/dL (31.5-36.5); Mean Corpuscular Volume 104 fL (80-100); NRBC ABSOLUTE 0.02 K/mm3 (0.00-0.02); NRBC Auto 0.9 /100 WBC (0.0-0.2); Platelet Count 210 K/mm3 (150-400); RDW Coefficient Variation 25.2 % (11.7-14.2); RDW Standard Deviation 92.8 fL (35.1-46.3)
--- NOTE | 2025-06-09 07:27 | NUR ---
History, Chart, Medications and Allergies reviewed before start of procedure. Lungs clear T/O to Auscultation. Patient confirms NPO status and agrees with scheduled surgery. Patient reports completing Chlorhexadine shower X2 prior to admission to hospital. Pre-Op teaching done. Pt verbalizes understanding.
[2025-06-09 07:33] LABS: Alanine Aminotransfer (ALT/SGP 78.0 U/L (12-78); Albumin, Blood 3.9 g/dL (3.4-5.0); Albumin/Globulin Ratio 0.9 (0.8-1.8); Anion Gap 7.0 mmol/L (3-11); Aspartate Aminotrans (AST/SGOT 78.0 U/L (12-37); Bilirubin, Total 2.0 mg/dL (0.1-1.0); Blood Urea Nitrogen 21.0 mg/dL (8-24); CO2, Blood 31.0 mmol/L (21-32); Calcium, Blood 8.9 mg/dL (8.5-10.1); Chloride, Blood 100.0 mmol/L (98-108); Creatinine, Blood 0.56 mg/dL (0.60-1.20); Globulin, Blood 4.5 g/dL (2.2-4.0); Glucose, Blood 117.0 mg/dL (70-99); Potassium, Blood 3.5 mmol/L (3.5-5.5); Sodium, Blood 134.0 mmol/L (136-145); Total Protein, Blood 8.4 g/dL (6.4-8.2)
[2025-06-09 07:45] LABS: BAND PERCENT MAN 18 % (0-8); BASOPHILS ABSOLUTE MAN 0.06 K/mm3 (0.00-0.23); BASOPHILS PERCENT MAN 3 % (0-2); EOSINOPHILS ABSOLUTE MAN 0.12 K/mm3 (0.00-0.68); EOSINOPHILS PERCENT MAN 6 % (0-6); LYMPHOCYTES ABSOLUTE MAN 0.35 K/mm3 (0.84-5.20); LYMPHOCYTES PERCENT MAN 17 % (21-46); MONOCYTES ABSOLUTE MAN 0.23 K/mm3 (0.16-1.47); MONOCYTES PERCENT MAN 11 % (4-13); NEUTROPHILS ABSOLUTE MAN 1.30 K/mm3 (1.96-9.15); PLASMA CELL ABSOLUTE MAN 0.02 K/mm3 (0.00-0.00); PLASMA CELLS PERCENT MAN 1 % (0-0); SEG NEUTROPHILS PERCENT MAN 44 % (41-73)
[2025-06-09] MEDS ORDERED: FentaNYL Citrate 50 MCG/ML 2 ML Injection IV PRN ×3 (08:00→08:10)
[2025-06-09] MEDS ORDERED: Metoclopramide HCl 5MG / ML 2ML Vial IV PRN (08:00)
[2025-06-09] MEDS ORDERED: Ondansetron HCl 2 MG / ML 2ML Vial IV PRN (08:05)
[2025-06-09] MEDS ORDERED: HYDROmorphone HCl/Pf 1MG SYR IV PRN (08:10)
[2025-06-09] MEDS ORDERED: HYDROcodone 5-APAP 325 TAB PO PRN (08:30)
--- NOTE | 2025-06-09 09:59 | NUR ---
TO STEP POST RIGHT LE EXCISION. WOUND CDI WRAPPED WITH GAUZE/SAMEERA. 1 NORCO GIVEN ORDERED. TRANSPORT SERVICE CALLED, ADDITIONAL STOP ADDED FOR PHARMACY BOILER/CHILLER OPERATOR. TAYLA PO WELL. DC'D IV INTACT.UP TO BR WITH STANDBY ASSIST. NOTABLE LIMP, BASELINE FOR PT. DC'D VIA WC TO TRANSPORT BOILER/CHILLER OPERATOR.
== END 2025-06-09 09:45 | disposition home or self-care (01) ==
LOC: ORSCMMR 06:13 → ORD 07:30 → ORSCMMR 09:45
PROVIDERS: Surgery
PROC: 0HBHXZZ Excision of Right Upper Leg Skin, External Approach (ICD-10-PCS; principal; 2025-06-09 07:30)
DX: C44.722 Squamous cell carcinoma of skin of right lower limb, including hip (principal); D46.9 Myelodysplastic syndrome, unspecified; J44.9 Chronic obstructive pulmonary disease, unspecified; I48.19 Other persistent atrial fibrillation; Z85.9 Personal history of malignant neoplasm, unspecified
CPT/HCPCS: 80053; 85025; 86850; 86900; 86901; 88305; A9270; J0690; J1100; J2405; J2704; J3010; J7120

== ENCOUNTER 2025-06-17 16:44 | Emergency (ER) | payer OTHER ==
[~2025-06-17] VITALS: Ht 172.7 cm; Wt 71.2 kg
[2025-06-17 17:49] LABS: BASOPHILS ABSOLUTE AUTO 0.02 K/mm3 (0.00-0.23); BASOPHILS PERCENT AUTO 1 % (0-2); EOSINOPHILS ABSOLUTE AUTO 0.07 K/mm3 (0.00-0.68); EOSINOPHILS PERCENT AUTO 3 % (0-6); IMMATURE GRAN ABSOLUTE AUTO 0.01 K/mm3 (0.00-0.10); IMMATURE GRAN PERCENT AUTO 0 % (0-1); LYMPHOCYTES ABSOLUTE AUTO 0.53 K/mm3 (0.84-5.20); LYMPHOCYTES PERCENT AUTO 23 % (21-46); MONOCYTES ABSOLUTE AUTO 0.28 K/mm3 (0.16-1.47); MONOCYTES PERCENT AUTO 12 % (4-13); Mean Corpuscular HGB Conc 32.5 g/dL (31.5-36.5); Mean Corpuscular Volume 109 fL (80-100); NEUTROPHILS ABSOLUTE AUTO 1.42 K/mm3 (1.96-9.15); NEUTROPHILS PERCENT AUTO 61 % (41-73); NRBC ABSOLUTE 0.04 K/mm3 (0.00-0.02); NRBC Auto 1.7 /100 WBC (0.0-0.2); Platelet Count 187 K/mm3 (150-400); RDW Coefficient Variation 27.5 % (11.7-14.2); RDW Standard Deviation 97.2 fL (35.1-46.3)
[2025-06-17 17:52] LABS: Hemoglobin 5.1 g/dL (13.5-17.5)
[2025-06-17 17:53] LABS: Hematocrit 15.7 % (37.0-53.0)
[2025-06-17] MEDS ORDERED: NS 1,000 ML IV ONE (19:14)
[2025-06-17 19:53] LABS: Alanine Aminotransfer (ALT/SGP 58.0 U/L (12-78); Albumin, Blood 3.6 g/dL (3.4-5.0); Albumin/Globulin Ratio 0.9 (0.8-1.8); Anion Gap 5.0 mmol/L (3-11); Aspartate Aminotrans (AST/SGOT 52.0 U/L (12-37); Bilirubin, Total 2.3 mg/dL (0.1-1.0); Blood Urea Nitrogen 19.0 mg/dL (8-24); CO2, Blood 29.0 mmol/L (21-32); Calcium, Blood 8.4 mg/dL (8.5-10.1); Chloride, Blood 102.0 mmol/L (98-108); Creatinine, Blood 0.54 mg/dL (0.60-1.20); Globulin, Blood 3.9 g/dL (2.2-4.0); Glucose, Blood 123.0 mg/dL (70-99); Potassium, Blood 3.3 mmol/L (3.5-5.5); Sodium, Blood 133.0 mmol/L (136-145); Total Protein, Blood 7.5 g/dL (6.4-8.2)
[2025-06-17 23:30] VITALS: BP 124/75
== END 2025-06-18 00:15 | disposition home or self-care (01) ==
LOC: ER 16:44
PROVIDERS: Emergency Medicine; Student in an Organized Health Care Education/Training Program
DX: D46.9 Myelodysplastic syndrome, unspecified (principal); E87.6 Hypokalemia; E87.1 Hypo-osmolality and hyponatremia; J45.909 Unspecified asthma, uncomplicated; I48.91 Unspecified atrial fibrillation; F17.210 Nicotine dependence, cigarettes, uncomplicated; Z88.5 Allergy status to narcotic agent; Z88.0 Allergy status to penicillin; Z79.899 Other long term (current) drug therapy
CPT/HCPCS: 36430; 80053; 85025; 86850; 86900; 86901; 86923; 93005; 93010; 99284-25; A9270; J7030; P9016

== ENCOUNTER → 2025-06-17 | Outpatient (CLI) | payer OTHER ==
[2025-06-17 12:45] LABS: BASOPHILS ABSOLUTE AUTO 0.03 K/mm3 (0.00-0.23); BASOPHILS PERCENT AUTO 1 % (0-2); EOSINOPHILS ABSOLUTE AUTO 0.07 K/mm3 (0.00-0.68); EOSINOPHILS PERCENT AUTO 3 % (0-6); IMMATURE GRAN ABSOLUTE AUTO 0.01 K/mm3 (0.00-0.10); IMMATURE GRAN PERCENT AUTO 1 % (0-1); LYMPHOCYTES ABSOLUTE AUTO 0.54 K/mm3 (0.84-5.20); LYMPHOCYTES PERCENT AUTO 25 % (21-46); MONOCYTES ABSOLUTE AUTO 0.30 K/mm3 (0.16-1.47); MONOCYTES PERCENT AUTO 14 % (4-13); Mean Corpuscular HGB Conc 33.3 g/dL (31.5-36.5); Mean Corpuscular Volume 108 fL (80-100); NEUTROPHILS ABSOLUTE AUTO 1.23 K/mm3 (1.96-9.15); NEUTROPHILS PERCENT AUTO 56 % (41-73); NRBC ABSOLUTE 0.04 K/mm3 (0.00-0.02); NRBC Auto 1.8 /100 WBC (0.0-0.2); Platelet Count 192 K/mm3 (150-400); RDW Coefficient Variation 27.8 % (11.7-14.2); RDW Standard Deviation 100.7 fL (35.1-46.3)
[2025-06-17 12:47] LABS: Hematocrit 15.0 % (37.0-53.0)
[2025-06-17 12:53] LABS: Hemoglobin 5.0 g/dL (13.5-17.5)
== END ==
LOC: LAB 11:19 → LAB SHORT 11:19
PROVIDERS: Family Medicine
DX: D46.9 Myelodysplastic syndrome, unspecified (principal)
CPT/HCPCS: 85025

== ENCOUNTER 2025-06-30 04:50 | Day surgery (SDC) | payer OTHER ==
[2025-06-30] MEDS ORDERED: NS 250 ML IV SCH (06:55)
[2025-06-30 13:31] VITALS: BP 112/60
[2025-06-30 13:51] VITALS: BP 112/58
[2025-06-30 15:00] VITALS: BP 106/64
[2025-06-30 15:33] VITALS: BP 104/63
[2025-06-30 16:34] VITALS: BP 122/63
== END 2025-06-30 16:58 | disposition home or self-care (01) ==
LOC: ATC 04:50
DX: D46.9 Myelodysplastic syndrome, unspecified (principal); D63.0 Anemia in neoplastic disease; J44.89 Other specified chronic obstructive pulmonary disease; I10 Essential (primary) hypertension; I48.91 Unspecified atrial fibrillation; Z87.891 Personal history of nicotine dependence; Z79.899 Other long term (current) drug therapy; Z88.0 Allergy status to penicillin; Z88.5 Allergy status to narcotic agent
CPT/HCPCS: 36415; 36430; 86850; 86900; 86901; 86923; J7050; P9016

== ENCOUNTER 2025-07-21 03:06 | Day surgery (SDC) | payer OTHER ==
[2025-07-21] VITALS (7 sets, daily range): BP systolic 107–124; BP diastolic 52–75
[2025-07-21] MEDS ORDERED: NS 250 ML IV SCH (07:00)
[2025-07-21] MEDS ORDERED: MAGNESIUM OXID500 MG (08:17)
[2025-07-21] MEDS ORDERED: PRED5 (08:17)
== END 2025-07-21 12:04 | disposition home or self-care (01) ==
LOC: ATC 03:06
DX: D46.20 Refractory anemia with excess of blasts, unspecified (principal); I50.22 Chronic systolic (congestive) heart failure; J44.9 Chronic obstructive pulmonary disease, unspecified; I48.20 Chronic atrial fibrillation, unspecified
CPT/HCPCS: 36415; 36430; 86850; 86900; 86901; 86923; J7050; P9016

== ENCOUNTER 2025-07-30 15:13 | Emergency (ER) | payer OTHER ==
[~2025-07-30] VITALS: Ht 172.7 cm; Wt 74.8 kg
[~2025-07-30 15:13] MED LIST changes: +MAGNESIUM OXID500 MG; +PRED5
[2025-07-30 16:38] LABS: Hematocrit 17.3 % (37.0-53.0); Hemoglobin 5.7 g/dL (13.5-17.5)
[2025-07-30] MEDS ORDERED: NS 1,000 ML IV SCH (19:15)
[2025-07-31 00:30] VITALS: BP 115/71
== END 2025-07-31 00:58 | disposition home or self-care (01) ==
LOC: ER 15:13
PROVIDERS: Emergency Medicine
DX: D46.9 Myelodysplastic syndrome, unspecified (principal); J44.9 Chronic obstructive pulmonary disease, unspecified; Z88.5 Allergy status to narcotic agent; Z88.0 Allergy status to penicillin; Z79.899 Other long term (current) drug therapy; F17.200 Nicotine dependence, unspecified, uncomplicated
CPT/HCPCS: 36415; 36430; 80053; 85014; 85018; 85025; 86850; 86900; 86901; 86923; 99284; J7030; P9016

== ENCOUNTER 2025-08-20 01:30 | Day surgery (SDC) | payer OTHER ==
[2025-08-18 11:38] LABS: BASOPHILS ABSOLUTE AUTO 0.03 K/mm3 (0.00-0.23); BASOPHILS PERCENT AUTO 2 % (0-2); EOSINOPHILS ABSOLUTE AUTO 0.07 K/mm3 (0.00-0.68); EOSINOPHILS PERCENT AUTO 4 % (0-6); Hematocrit 20.3 % (37.0-53.0); Hemoglobin 6.7 g/dL (13.5-17.5); IMMATURE GRAN ABSOLUTE AUTO 0.01 K/mm3 (0.00-0.10); IMMATURE GRAN PERCENT AUTO 1 % (0-1); LYMPHOCYTES ABSOLUTE AUTO 0.46 K/mm3 (0.84-5.20); LYMPHOCYTES PERCENT AUTO 24 % (21-46); MONOCYTES ABSOLUTE AUTO 0.17 K/mm3 (0.16-1.47); MONOCYTES PERCENT AUTO 9 % (4-13); Mean Corpuscular HGB Conc 33.0 g/dL (31.5-36.5); Mean Corpuscular Volume 103 fL (80-100); NEUTROPHILS ABSOLUTE AUTO 1.21 K/mm3 (1.96-9.15); NEUTROPHILS PERCENT AUTO 62 % (41-73); NRBC ABSOLUTE 0.00 K/mm3 (0.00-0.02); NRBC Auto 0.0 /100 WBC (0.0-0.2); Platelet Count 252 K/mm3 (150-400); RDW Coefficient Variation 27.0 % (11.7-14.2); RDW Standard Deviation 93.8 fL (35.1-46.3)
[2025-08-18 12:15] LABS: Alanine Aminotransfer (ALT/SGP 82.0 U/L (12-78); Albumin, Blood 3.3 g/dL (3.4-5.0); Albumin/Globulin Ratio 0.7 (0.8-1.8); Anion Gap 6.0 mmol/L (3-11); Aspartate Aminotrans (AST/SGOT 94.0 U/L (12-37); Bilirubin, Total 1.7 mg/dL (0.1-1.0); Blood Urea Nitrogen 14.0 mg/dL (8-24); CO2, Blood 31.0 mmol/L (21-32); Calcium, Blood 8.7 mg/dL (8.5-10.1); Chloride, Blood 100.0 mmol/L (98-108); Creatinine, Blood 0.49 mg/dL (0.60-1.20); Globulin, Blood 4.5 g/dL (2.2-4.0); Glucose, Blood 113.0 mg/dL (70-99); Potassium, Blood 4.0 mmol/L (3.5-5.5); Sodium, Blood 133.0 mmol/L (136-145); Total Protein, Blood 7.8 g/dL (6.4-8.2)
[2025-08-20] MEDS ORDERED: NS 250 ML IV SCH (07:00)
[2025-08-20] MEDS ORDERED: HYDR1TAB94 PO (07:19)
[2025-08-20 07:22] VITALS: BP 112/65
[2025-08-20 07:43] VITALS: BP 113/71
[2025-08-20 08:46] VITALS: BP 109/63
[2025-08-20 09:20] VITALS: BP 101/65
[2025-08-20 09:42] VITALS: BP 103/64
== END 2025-08-20 11:07 | disposition home or self-care (01) ==
LOC: ATC 01:30 → EDSTATUS 07:30 → ATC 11:07
PROVIDERS: Internal Medicine
DX: D46.A Refractory cytopenia with multilineage dysplasia (principal); J44.89 Other specified chronic obstructive pulmonary disease; I10 Essential (primary) hypertension; I48.91 Unspecified atrial fibrillation; Z85.6 Personal history of leukemia; Z87.891 Personal history of nicotine dependence; Z79.52 Long term (current) use of systemic steroids; Z79.899 Other long term (current) drug therapy; Z88.0 Allergy status to penicillin; Z88.5 Allergy status to narcotic agent
CPT/HCPCS: 36415; 36430; 80053; 85025; 86850; 86900; 86901; 86923; P9016

== ENCOUNTER 2025-08-27 08:16 | Day surgery (SDC) | payer OTHER ==
[2025-08-25 11:54] LABS: Hematocrit 18.0 % (37.0-53.0); Hemoglobin 6.0 g/dL (13.5-17.5); Mean Corpuscular HGB Conc 33.3 g/dL (31.5-36.5); Mean Corpuscular Volume 97 fL (80-100); NRBC ABSOLUTE 0.00 K/mm3 (0.00-0.02); NRBC Auto 0.0 /100 WBC (0.0-0.2); Platelet Count 61 K/mm3 (150-400); RDW Coefficient Variation 22.1 % (11.7-14.2); RDW Standard Deviation 75.5 fL (35.1-46.3)
[2025-08-25 11:57] LABS: BASOPHILS ABSOLUTE AUTO 0.01 K/mm3 (0.00-0.23); BASOPHILS PERCENT AUTO 1 % (0-2); EOSINOPHILS ABSOLUTE AUTO 0.06 K/mm3 (0.00-0.68); EOSINOPHILS PERCENT AUTO 7 % (0-6); IMMATURE GRAN ABSOLUTE AUTO 0.00 K/mm3 (0.00-0.10); IMMATURE GRAN PERCENT AUTO 0 % (0-1); LYMPHOCYTES ABSOLUTE AUTO 0.36 K/mm3 (0.84-5.20); LYMPHOCYTES PERCENT AUTO 39 % (21-46); MONOCYTES ABSOLUTE AUTO 0.04 K/mm3 (0.16-1.47); MONOCYTES PERCENT AUTO 4 % (4-13); NEUTROPHILS ABSOLUTE AUTO 0.46 K/mm3 (1.96-9.15); NEUTROPHILS PERCENT AUTO 49 % (41-73)
[2025-08-25 13:38] LABS: Alanine Aminotransfer (ALT/SGP 78.0 U/L (12-78); Albumin, Blood 3.5 g/dL (3.4-5.0); Albumin/Globulin Ratio 0.8 (0.8-1.8); Anion Gap 7.0 mmol/L (3-11); Aspartate Aminotrans (AST/SGOT 76.0 U/L (12-37); Bilirubin, Total 1.5 mg/dL (0.1-1.0); Blood Urea Nitrogen 18.0 mg/dL (8-24); CO2, Blood 29.0 mmol/L (21-32); Calcium, Blood 9.0 mg/dL (8.5-10.1); Chloride, Blood 100.0 mmol/L (98-108); Creatinine, Blood 0.53 mg/dL (0.60-1.20); Globulin, Blood 4.4 g/dL (2.2-4.0); Glucose, Blood 123.0 mg/dL (70-99); Potassium, Blood 3.6 mmol/L (3.5-5.5); Sodium, Blood 132.0 mmol/L (136-145); Total Protein, Blood 7.9 g/dL (6.4-8.2)
[~2025-08-27 08:16] MED LIST changes: +HYDR1TAB94 PO; +NS 250 ML IV SCH
[2025-08-27 13:25] VITALS: BP 117/60
--- NOTE | 2025-08-27 13:30 | NUR ---
Pt declines pre meds for the blood transfusion.
[2025-08-27 13:50] VITALS: BP 104/67
[2025-08-27 15:08] VITALS: BP 105/63
[2025-08-27 15:26] VITALS: BP 110/61
[2025-08-27 16:47] VITALS: BP 119/61
== END 2025-08-27 16:48 | disposition home or self-care (01) ==
LOC: ATC 08:16 → EDSTATUS 13:30 → ATC 13:30
PROVIDERS: Internal Medicine
DX: D46.A Refractory cytopenia with multilineage dysplasia (principal); I10 Essential (primary) hypertension; Z79.899 Other long term (current) drug therapy; Z87.891 Personal history of nicotine dependence
CPT/HCPCS: 36415; 36430; 80053; 85025; 86850; 86900; 86901; 86923; J7050; P9016

== ENCOUNTER 2025-09-02 00:10 | Day surgery (SDC) | payer OTHER ==
[2025-09-01 11:52] LABS: Mean Corpuscular HGB Conc 34.3 g/dL (31.5-36.5); Mean Corpuscular Volume 94 fL (80-100); NRBC ABSOLUTE 0.00 K/mm3 (0.00-0.02); NRBC Auto 0.0 /100 WBC (0.0-0.2); RDW Coefficient Variation 18.4 % (11.7-14.2); RDW Standard Deviation 58.5 fL (35.1-46.3)
[2025-09-01 11:58] LABS: BASOPHILS ABSOLUTE AUTO 0.00 K/mm3 (0.00-0.23); BASOPHILS PERCENT AUTO 0 % (0-2); EOSINOPHILS ABSOLUTE AUTO 0.03 K/mm3 (0.00-0.68); EOSINOPHILS PERCENT AUTO 7 % (0-6); IMMATURE GRAN ABSOLUTE AUTO 0.00 K/mm3 (0.00-0.10); IMMATURE GRAN PERCENT AUTO 0 % (0-1); LYMPHOCYTES ABSOLUTE AUTO 0.38 K/mm3 (0.84-5.20); LYMPHOCYTES PERCENT AUTO 83 % (21-46); MONOCYTES ABSOLUTE AUTO 0.02 K/mm3 (0.16-1.47); MONOCYTES PERCENT AUTO 4 % (4-13); NEUTROPHILS ABSOLUTE AUTO 0.03 K/mm3 (1.96-9.15); NEUTROPHILS PERCENT AUTO 7 % (41-73)
[2025-09-01 12:01] LABS: Hematocrit 16.9 % (37.0-53.0); Hemoglobin 5.8 g/dL (13.5-17.5); Platelet Count 22 K/mm3 (150-400)
[2025-09-01 12:20] LABS: Alanine Aminotransfer (ALT/SGP 101.0 U/L (12-78); Albumin, Blood 3.5 g/dL (3.4-5.0); Albumin/Globulin Ratio 0.8 (0.8-1.8); Anion Gap 8.0 mmol/L (3-11); Aspartate Aminotrans (AST/SGOT 84.0 U/L (12-37); Bilirubin, Total 1.3 mg/dL (0.1-1.0); Blood Urea Nitrogen 15.0 mg/dL (8-24); CO2, Blood 30.0 mmol/L (21-32); Calcium, Blood 8.4 mg/dL (8.5-10.1); Chloride, Blood 98.0 mmol/L (98-108); Creatinine, Blood 0.52 mg/dL (0.60-1.20); Globulin, Blood 4.2 g/dL (2.2-4.0); Glucose, Blood 112.0 mg/dL (70-99); Potassium, Blood 3.5 mmol/L (3.5-5.5); Sodium, Blood 132.0 mmol/L (136-145); Total Protein, Blood 7.7 g/dL (6.4-8.2)
[~2025-09-02 00:10] MED LIST changes: -NS 250 ML IV SCH
[2025-09-02] MEDS ORDERED: NS 250 ML IV SCH (07:00)
[2025-09-02 08:50] VITALS: BP 111/59
[2025-09-02 09:18] VITALS: BP 105/64
[2025-09-02 10:20] VITALS: BP 105/64
[2025-09-02 10:44] VITALS: BP 95/74
[2025-09-02 11:07] VITALS: BP 105/61
[2025-09-02 12:31] VITALS: BP 109/60
== END 2025-09-02 12:33 | disposition home or self-care (01) ==
LOC: ATC 00:10
PROVIDERS: Internal Medicine
DX: D46.A Refractory cytopenia with multilineage dysplasia (principal); J44.9 Chronic obstructive pulmonary disease, unspecified; I10 Essential (primary) hypertension; I48.91 Unspecified atrial fibrillation; C95.90 Leukemia, unspecified not having achieved remission; Z79.899 Other long term (current) drug therapy; Z87.891 Personal history of nicotine dependence; Z88.0 Allergy status to penicillin; Z88.8 Allergy status to other drugs, medicaments and biological substances
CPT/HCPCS: 36415; 36430; 80053; 85025; 86850; 86900; 86901; 86923; J7050; P9016

== ENCOUNTER 2025-09-16 02:07 | Day surgery (SDC) | payer OTHER ==
[2025-09-16] VITALS (7 sets, daily range): BP systolic 101–121; BP diastolic 56–70
[2025-09-16] MEDS ORDERED: NS 250 ML IV SCH ×2 (06:00)
== END 2025-09-16 17:36 | disposition home or self-care (01) ==
LOC: ATC 02:07
DX: D46.A Refractory cytopenia with multilineage dysplasia (principal); J44.9 Chronic obstructive pulmonary disease, unspecified; I11.9 Hypertensive heart disease without heart failure; I48.91 Unspecified atrial fibrillation; Z87.891 Personal history of nicotine dependence; Z79.52 Long term (current) use of systemic steroids; Z79.899 Other long term (current) drug therapy; Z88.0 Allergy status to penicillin; Z88.5 Allergy status to narcotic agent
CPT/HCPCS: 36415; 36430; 86850; 86900; 86901; 86923; J7050; P9016